=== PATIENT | male | born 2000 | race African-American/Black ===

== ENCOUNTER 2020-09-06 06:16 | Emergency (ER) | payer SELFPAY ==
[~2020-09-06] VITALS: Ht 165.1 cm; Wt 68.0 kg
--- NOTE | 2020-09-06 06:47 | NUR ---
ED Nurse Note: Pt walked in from home, walks with a steady gait, axox4, vitals are stable on RA, breathing is even and unlabored. PT is co of abdominal pain when he lays down at night. He says theres no pain during the day but it wakes him up at night. bowel sounds are present, pt is passig flatus.
[2020-09-06 06:52] VITALS: BP 132/85
[2020-09-06] MEDS ORDERED: FAMOTIDINE20 MG ORAL (06:57)
[2020-09-06] MEDS ORDERED: ONDANSETRON ODT4 MG BC (06:57)
--- NOTE | 2020-09-06 07:00 | Emergency Room Report ---
History of Present Illness General Chief Complaint: Abdominal Pain Source: Patient Present Illness HPI Patient is a 19-year-old male presents for increased epigastric pain. Intermittent episodes of pain worse at nighttime. Denies any worsening with food. Reports having difficulty with digesting food. Denies any bloody stools. Reports of increased diarrhea over the past 4 days. Denies any fever. Denies any weakness. Prior history of daily marijuana use. Denies alcohol use. Denies any weight loss. Reports increased exercise and increased appetite. Prior history of atrial fibrillation but denies any current palpitations. 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 Patient History Past Medical History: see triage record Reviewed Nursing Documentation: PMH: Agreed; PSxH: Agreed Nursing Documentation-PM Past Medical History: No Stated History Hx Asthma: Yes Review of Systems All Other Systems: negative except mentioned in HPI Physical Exam Vital Signs Date Time Temp Pulse Resp B/P (MAP) Pulse Ox O2 Delivery O2 Flow Rate FiO2 09/06/20 06:33 98.4 85 20 134/85 (101) 98 Room Air Sp02 EP Interpretation: reviewed, normal General Appearance: normal inspection, well appearing, no apparent distress, alert, GCS 15, non-toxic Head: atraumatic ENT: normal ENT inspection, hearing grossly normal, normal voice Neck: normal inspection, full range of motion, supple, no bony tend Respiratory: normal inspection, lungs clear, normal breath sounds, no respiratory distress, no retraction, no wheezing Cardiovascular #1: normal inspection, regular rate, rhythm, no edema Gastrointestinal: normal inspection, normal bowel sounds, non tender, soft, no guarding, no hernia Genitourinary: no CVA tenderness Musculoskeletal: normal inspection, back normal, normal range of motion Neurologic: alert, motor strength/tone normal, behavioral medical director III-XII nml as tested, oriented x3, responsive, speech normal, normal inspection Psychiatric: normal inspection, judgement/insight normal, mood/affect normal Medical Decision Making Diagnostic Impression: Primary Impression: Nonspecific abdominal pain ER Course Patient presents for epigastric pain. Differential diagnosis include was not limited to gastroenteritis, marijuana intoxication, cardiac arrhythmia among others. Patient has a benign exam and does not appear to require any imaging or laboratory testing at this time. Patient is overall benign exam does not appear to have any current pain. Patient's abdomen is nonsurgical and benign. Bedside ultrasound showed no evidence of gallstones. No pericardial effusion was seen. Normal cardiac wall motion. Patient does report having improvement in abdominal discomfort with showering. Patient was advised discontinuation of marijuana use. He was also advised to take acid blockers due to abdominal discomfort. He was advised to return if he began having worsening symptoms persistent vomiting or other concerns. This medical record is generated with [employer] livestock broker software. There may be some livestock broker discrepancies related to use of this software Last Vital Signs Date Time Temp Pulse Resp B/P (MAP) Pulse Ox O2 Delivery O2 Flow Rate FiO2 09/06/20 06:52 84 19 Room Air 09/06/20 06:52 98.3 132/85 98 Status: improved Disposition: HOME, SELF-CARE Condition: Stable Scripts Famotidine* (Pepcid 20mg tablet*) 20 Mg Tablet 20 MG ORAL TWICE A DAY for Gerd, #60 TAB 0 Refills Prov: Bipin Jarquin MD 09/06/20 Ondansetron Odt* (ZOFRAN ODT*) 4 Mg Tab.rapdis 4 MG BC EVERY 8 HOURS PRN for Nausea & Vomiting, #10 TAB 0 Refills Prov: Bipin Jarquin MD 09/06/20 Patient Instructions: Abdominal Pain, Adult Additional Instructions: Follow up with your doctor for recheck. Do not smoke marijuana. Use medications as directed. Return if worse. Bipin Jarquin MD Sep 06, 2020 07:00
--- NOTE | 2020-09-06 07:08 | NUR ---
ER DISCHARGE NOTE: Patient is cleared to be discharged per ERMD, pt is aox4, on room air, with stable vital signs. pt was given dc and prescription instructions, pt was able to verbalize understanding, pt id band removed. pt is able to ambulate with steady gait. pt took all belongings. pt left in a private car
[2020-09-06 07:09] VITALS: BP 130/84
== END 2020-09-06 07:20 | disposition home or self-care (01) ==
LOC: EMR 07:05
DX: R10.9 Unspecified abdominal pain (principal); J45.909 Unspecified asthma, uncomplicated; F12.90 Cannabis use, unspecified, uncomplicated
CPT/HCPCS: 99282